=== PATIENT | female | born 1995 | race Caucasian/White ===

== ENCOUNTER 2018-07-19 11:19 | Emergency (ER) | payer OTHER ==
[~2018-07-19] VITALS: Ht 152.4 cm; Wt 101.2 kg
[2018-07-19 11:23] VITALS: Ht 152.4 cm; Wt 101.2 kg
[2018-07-19 13:35] VITALS: BP 110/78
== END 2018-07-19 13:35 | disposition home or self-care (01) ==
LOC: ED 11:19
DX: N94.6 Dysmenorrhea, unspecified (principal); Z88.1 Allergy status to other antibiotic agents